=== PATIENT | male | born 1945 ===

== ENCOUNTER 2018-03-16 18:20 | Observation (INO) | payer SELFPAY ==
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
[2018-03-16 21:43] LABS: BASO # 0.1 K/uL (0.0-0.2); BASO % 0.4 % (0.0-2.0); EOS % 0.2 % (0.0-4.0); HEMOGLOBIN 16.3 g/dL (12.0-18.0); LYMPH # 1.5 K/uL (1.0-4.3); LYMPH % 10.8 % (20.0-40.0); MEAN CELL VOLUME 91.7 fL (80.0-94.0); MEAN CORPUSCULAR HEMOGLOBIN 32.1 pg (27.0-31.0); MEAN PLATELET VOLUME 7.5 fL (7.2-11.7); MONO # 0.9 K/uL (0.0-0.8); MONO % 6.8 % (0.0-10.0); NEUT # 11.2 K/uL (1.8-7.0); NEUT % 81.8 % (50.0-75.0); NRBC % 0.1 % (0.0-2.0); RBC 5.08 Mil/uL (4.40-5.90); RED CELL DISTRIBUTION WIDTH 12.3 % (11.5-14.5); WHITE BLOOD COUNT 13.6 K/uL (4.8-10.8)
[2018-03-16 21:55] LABS: ALB/GLOB RATIO 1.1 (1.0-2.1); ALBUMIN 4.4 g/dL (3.5-5.0); ALT/SGPT 34 U/L (21-72); AST/SGOT 28 U/L (17-59); BLOOD UREA NITROGEN 14 mg/dL (9-20); CALCIUM 9.3 mg/dl (8.6-10.4); GFR NON-AFRICAN AMERICAN > 60; INR 1.3; PROTHROMBIN TIME 13.9 SECONDS (9.7-12.2)
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
[2018-03-17 08:04] VITALS: RESP 20
--- NOTE | 2018-03-17 09:22 | CT ---
Date of service: 03/16/2018 PROCEDURE: CT HEAD WITHOUT CONTRAST. HISTORY: headache, head trauma COMPARISON: None available. TECHNIQUE: Axial computed tomography images were obtained through the head/brain without intravenous contrast. Radiation dose: Total exam DLP = 804.71 mGy-cm. This CT exam was performed using one or more of the following dose reduction techniques: Automated exposure control, adjustment of the mA and/or kV according to patient size, and/or use of iterative reconstruction technique. FINDINGS: HEMORRHAGE: Bilateral frontal intraparenchymal and subarachnoid hemorrhages with evidence of associated vasogenic edema. BRAIN: Bilateral probable subdural hygromas. Diffuse atrophy with prominence of the ventricles and sulci noted. No mass effect or edema. Scattered white matter hypodensities, which are nonspecific, but often seen with chronic microvascular ischemic disease. Please note that MRI with diffusion imaging is more sensitive in the detection of acute ischemic event. VENTRICLES: No hydrocephalus. CALVARIUM: Unremarkable. PARANASAL SINUSES: Mucosal polyp or cyst in the left maxillary sinus. Mucosal thickening of the ethmoid air cells. MASTOID AIR CELLS: Unremarkable as visualized. No inflammatory changes. OTHER FINDINGS: None. IMPRESSION: Bilateral frontal intraparenchymal and subarachnoid hemorrhages with evidence of associated vasogenic edema. Suspected bilateral subdural hygromas. Additional findings as above. Preliminary impression was provided by [employer].
--- NOTE | 2018-03-17 10:32 | CT ---
Date of service: 03/17/2018 PROCEDURE: CT HEAD WITHOUT CONTRAST. HISTORY: monitor hemorrhage COMPARISON: Noncontrast head CT performed 03/16/18 TECHNIQUE: Axial computed tomography images were obtained through the head/brain without intravenous contrast. Radiation dose: Total exam DLP = 1012.83 mGy-cm. This CT exam was performed using one or more of the following dose reduction techniques: Automated exposure control, adjustment of the mA and/or kV according to patient size, and/or use of iterative reconstruction technique. FINDINGS: HEMORRHAGE: Persistent but mildly improving bilateral frontal intraparenchymal hemorrhages and possible subarachnoid blood. Associated vasogenic edema. BRAIN: Bilateral probable subdural hygromas. Diffuse atrophy with prominence of the ventricles and sulci noted. No mass effect or edema. Scattered white matter hypodensities, which are nonspecific, but often seen with chronic microvascular ischemic disease. Please note that MRI with diffusion imaging is more sensitive in the detection of acute ischemic event. VENTRICLES: No hydrocephalus. CALVARIUM: Unremarkable. PARANASAL SINUSES: Mucosal polyp/cyst, left maxillary sinus. Mucosal thickening of the ethmoid air cells. MASTOID AIR CELLS: Unremarkable as visualized. No inflammatory changes. OTHER FINDINGS: None. IMPRESSION: Persistent but mildly improving bilateral frontal intraparenchymal hemorrhages and possible subarachnoid blood. Associated vasogenic edema. Bilateral subdural hygromas.
[2018-03-17 11:19] LABS: BASO % 0.4 % (0.0-2.0); EOS # 0.1 K/uL (0.0-0.7); EOS % 0.7 % (0.0-4.0); HEMOGLOBIN 16.1 g/dL (12.0-18.0); LYMPH # 1.7 K/uL (1.0-4.3); LYMPH % 13.3 % (20.0-40.0); MEAN CELL VOLUME 93.2 fL (80.0-94.0); MEAN CORPUSCULAR HEMOGLOBIN 32.6 pg (27.0-31.0); MONO % 7.9 % (0.0-10.0); NEUT # 10.2 K/uL (1.8-7.0); NEUT % 77.7 % (50.0-75.0); RBC 4.94 Mil/uL (4.40-5.90); RED CELL DISTRIBUTION WIDTH 12.6 % (11.5-14.5); WHITE BLOOD COUNT 13.1 K/uL (4.8-10.8)
--- NOTE | 2018-03-17 11:31 | MRI ---
Date of service: 03/17/2018 PROCEDURE: MRI BRAIN WITHOUT CONTRAST HISTORY: monitor hemorrhage COMPARISON: Earlier CT same day TECHNIQUE: Multiplanar, multisequence MR images of the brain were obtained without intravenous contrast enhancement. FINDINGS: HEMORRHAGE: Parenchymal hemorrhages are seen in the anterior frontal lobes. There is a moderate amount of surrounding vasogenic edema. Small subdural hygromas are seen bilaterally measuring 4 mm in thickness. DWI: No evidence of an acute or early subacute infarction. BRAIN PARENCHYMA: No mass effect or edema. No atrophy or chronic microvascular ischemic changes. VENTRICLES: Unremarkable. No hydrocephalus. CRANIUM: Unremarkable. ORBITS: Grossly unremarkable. PARANASAL SINUSES/MASTOIDS: Clear VASCULAR SYSTEM: Skull base flow voids intact. OTHER FINDINGS: None. IMPRESSION: Small bilateral intraparenchymal hemorrhages in both frontal lobes with surrounding vasogenic edema. Small symmetrical 4 mm thick subdural hygromas. No evidence of acute subdural or subarachnoid bleed
[2018-03-17 11:39] LABS: ALB/GLOB RATIO 1.1 (1.0-2.1); ALBUMIN 4.4 g/dL (3.5-5.0); ALT/SGPT 38 U/L (21-72); AST/SGOT 38 U/L (17-59); BLOOD UREA NITROGEN 17 mg/dL (9-20); CALCIUM 9.4 mg/dl (8.6-10.4); GFR NON-AFRICAN AMERICAN > 60
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
[2018-03-17] MEDS ORDERED: Potassium Chloride 20 mEq ER Tab PO ONE (14:00)
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
[2018-03-18 00:07] VITALS: O2SAT 98
[2018-03-18 08:08] VITALS: TEMP 98.9
[2018-03-18 08:46] LABS: BASO % 0.2 % (0.0-2.0); EOS # 0.1 K/uL (0.0-0.7); EOS % 0.9 % (0.0-4.0); LYMPH # 1.8 K/uL (1.0-4.3); LYMPH % 15.8 % (20.0-40.0); MEAN CELL VOLUME 92.7 fL (80.0-94.0); MEAN CORPUSCULAR HEMOGLOBIN 31.4 pg (27.0-31.0); MEAN CORPUSCULAR HGB CONC 33.9 g/dL (33.0-37.0); MONO # 1.2 K/uL (0.0-0.8); MONO % 10.4 % (0.0-10.0); NEUT # 8.3 K/uL (1.8-7.0); NEUT % 72.7 % (50.0-75.0); RBC 4.78 Mil/uL (4.40-5.90); RED CELL DISTRIBUTION WIDTH 12.4 % (11.5-14.5); WHITE BLOOD COUNT 11.4 K/uL (4.8-10.8)
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
[2018-03-18 09:05] LABS: ALB/GLOB RATIO 1.1 (1.0-2.1); ALT/SGPT 44 U/L (21-72); AST/SGOT 37 U/L (17-59); BLOOD UREA NITROGEN 12 mg/dL (9-20); CALCIUM 9.1 mg/dl (8.6-10.4); GFR NON-AFRICAN AMERICAN > 60
[2018-03-18 12:25] VITALS: BP 141/69; PULSE 65
--- NOTE | 2018-03-18 15:07 | CT ---
Date of service: 03/18/2018 PROCEDURE: CT HEAD WITHOUT CONTRAST. HISTORY: Brain Bleed. COMPARISON: Several prior studies, most recent performed 03/17/18 at 831 hr TECHNIQUE: Axial computed tomography images were obtained through the head/brain without intravenous contrast. Radiation dose: Total exam DLP = 996.49 mGy-cm. This CT exam was performed using one or more of the following dose reduction techniques: Automated exposure control, adjustment of the mA and/or kV according to patient size, and/or use of iterative reconstruction technique. FINDINGS: HEMORRHAGE: Persistent bilateral frontal intraparenchymal hemorrhages without significant interval change. Associated vasogenic edema. BRAIN: Bilateral subdural hygromas. Diffuse atrophy with prominence of the ventricles and sulci noted. No mass effect or edema. The coto-white matter differentiation appears grossly intact. VENTRICLES: No hydrocephalus. CALVARIUM: Unremarkable. PARANASAL SINUSES: Mucosal polyp/cyst, left maxillary sinus. Mild mucosal thickening of the left sphenoid sinus. Mucosal thickening of the ethmoid air cells. MASTOID AIR CELLS: Unremarkable as visualized. No inflammatory changes. OTHER FINDINGS: Partial opacification of the right external auditory canal, likely cerumen. IMPRESSION: Overall appearance grossly stable. Persistent bilateral frontal intraparenchymal hemorrhages. Associated vasogenic edema. Bilateral subdural hygromas.
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
[2018-03-19] MEDS ORDERED: Pneumococcal 23-Valent Vaccine IM ONE (10:00)
[2018-03-19] MEDS ORDERED: Influenza Vaccine 60 mcg/0.5 mL SYR (4YR UP) IM ONE (10:00)
--- NOTE | 2018-03-19 12:19 | CARD ---
APPROVED REPORT Date of service: 03/16/2018 EKG Measurement Heart [id number] <Conclusion> Sinus bradycardia Right bundle branch block Abnormal ECG
== END 2018-03-18 16:40 | disposition home or self-care (01) ==
LOC: C.ER 18:20 → C.9E 22:14 → C.5S 03-17 00:52
PROVIDERS: ADMIT Family Medicine; ATTEND Family Medicine
DX: S06.6X0A Traumatic subarachnoid hemorrhage without loss of consciousness, initial encounter (principal); F07.81 Postconcussional syndrome; W18.30XA Fall on same level, unspecified, initial encounter; Y04.0XXA Assault by unarmed brawl or fight, initial encounter; J32.2 Chronic ethmoidal sinusitis; G93.6 Cerebral edema
CPT/HCPCS: 36415; 70450; 70551; 80053; 83735; 84100; 85025; 85610; 85730; 93005; 97116; 97162; 99285; G0378; G8978; G8979